=== PATIENT | male | born 1990 | race Two or more races ===

== ENCOUNTER 2025-05-20 05:08 | Emergency (ER) | payer MEDICAID, SELFPAY ==
[2025-05-20 05:09] VITALS: BP 146/97; PULSE 90; TEMP 37.1; O2SAT 97
[2025-05-20 05:11] VITALS: BMI 31.0
[2025-05-20] MEDS: DEXAMETHASONE SOD PHOS INJ 10 MG/ML VIAL IM (06:38)
[2025-05-20 07:10] LABS: Basophils # (Auto) 0.0 Thou/mm3 (0.0-0.2); Basophils % (Auto) 1 % (0-2.5); Eosinophils # (Auto) 0.1 Thou/mm3 (0.0-0.5); Eosinophils % (Auto) 2 % (0-10); Hematocrit 43.2 % (41.0-53.0); Hemoglobin 14.5 g/dL (13.5-16.0); Immature Granulocytes Auto 0.01 Thou/mm3 (0.00-0.00); Lymphocytes # (Auto) 2.2 Thou/mm3 (1.0-4.8); Lymphocytes % (Auto) 29 % (10-50); Mean Corpuscular HGB Conc 33.6 g/dl (31.0-37.0); Mean Corpuscular Hemoglobin 29.5 pg (25.0-35.0); Mean Corpuscular Volume 88 fL (80-100); Monocytes # (Auto) 0.7 Thou/mm3 (0.0-0.8); Monocytes % (Auto) 10 % (0-12); Neutrophils # (Auto) 4.5 Thou/mm3 (1.8-7.7); Neutrophils % (Auto) 59 % (37-80); Nucleated Red Blood Cell # 0.00 Thou/mm3 (0.00-0.00); Nucleated Red Blood Cell % 0 /100 WBC (0); Platelet Count 241 Thou/mm3 (140-440); RDW Standard Deviation 39.8 fL (35.1-43.9); Red Blood Count 4.91 Miln/mm3 (4.50-5.90); White Blood Count 7.6 Thou/mm3 (3.8-10.6)
--- NOTE | 2025-05-20 07:15 | PD.EDRME ---
Rapid Medical Screening Exam RME Arrival date/time: 05/20/25 05:08 34-year-old male presents to the emergency department today for complaint of difficulty swallowing Chief Complaint: Shortness of Breath/Dyspnea Vital signs: Vital Signs Temperature 98.7 F 05/20/25 05:09 Pulse Rate 90 05/20/25 05:09 Blood Pressure 146/97 H 05/20/25 05:09 Pulse Oximetry (%) 97 05/20/25 05:09 Oxygen Delivery Method Room Air 05/20/25 05:09
[2025-05-20 07:18] VITALS: BP 137/100; PULSE 76; RESP 16; O2SAT 96
[2025-05-20 07:25] LABS: INR 1.0 (0.9-1.3); Partial Thromboplastin Time 23.8 Seconds (22.0-36.0); Prothrombin Time 10.9 Seconds (9.0-12.2)
[2025-05-20] MEDS: SODIUM CHLORIDE 0.9% 1000 ML 1,000 ML 999 ML IV (07:27)
[2025-05-20] MEDS: GLUCAGON INJ 1 MG VIAL IVP (07:28)
[2025-05-20 07:29] LABS: Alanine Aminotransferase 73 U/L (10-49); Albumin, Serum 5.1 gm/dL (3.5-5.0); Albumin/Globulin Ratio 2.0 (1.2-2.2); Alkaline Phosphatase 84 U/L (46-116); Anion Gap 12 (7-16); Aspartate Amino Transferase 40 U/L (0-34); BUN/Creatinine Ratio 12 Ratio (12-20); Bilirubin,Total 0.6 mg/dL (0.3-1.2); Blood Urea Nitrogen 11 mg/dL (9-23); Calcium 10.2 mg/dL (8.3-10.6); Calcium (Corrected) 10.2 mg/dL (8.5-10.1); Carbon Dioxide 28.1 mMol/L (20.0-31.0); Chloride 100 mMol/L (98-107); Creatinine (Component) 0.9 mg/dL (0.6-1.3); Estimated Creatinine Clearance 134.2 mL/min (>60); Globulin 2.6 gm/dL (2.3-3.5); Glucose 94 mg/dL (74-106); Osmolality,Calculated 278 (275-295); Potassium 4.0 mMol/L (3.4-5.1); Sodium 140 mMol/L (136-145); Total Protein 7.7 gm/dL (5.7-8.2); eGFR > 60 See Note
[2025-05-20] MEDS: ONDANSETRON INJ 2 MG/ML INJ 2 ML 4 MG IVP (07:30)
[2025-05-20] MEDS: FAMOTIDINE INJ 10 MG/ML VIAL 2 ML 20 MG IVP (07:30)
--- NOTE | 2025-05-20 10:24 | PD.EDSOB ---
ED SOB =RME/HPI General Chief Complaint: Shortness of Breath/Dyspnea Stated Complaint: SHORTNESS OF BREATH Arrival date/time: 05/20/25 05:08 Limitations: no limitations RME / HPI RME / HPI Narrative: 05/20/25 05:08 34-year-old male presents to the emergency department today for complaint of difficulty swallowing DR. BEAL MAIN ED EVALUATION: 34 year old male with no stated medical history presents to the ED for evaluation of foreign body sensation just below the neck beginning early this morning. Accompanied by feeling slightly short of breath and difficulty swallowing. States yesterday for dinner he had soft shell chicken tacos. Patient states he was able to swallow water this morning but unable to eat anything due to an uncomfortable sensation. Denies any drooling. No other associated symptoms or complaints reported. Denies vomiting. Related Data Previous Rx's ?Medication ?Instructions ?Recorded Hydrocodone/Acetaminophen * (NORCO 1 tab PO Q4H PRN PAIN #10 tabs 08/06/16 5/325 *) Diphenhydramine Hcl CRM * 0 TOP Q4H PRN ITCHING ##20 07/04/17 (BENADRYL CRM *) hydrocortisone 2.5 % topical cream 1 appln TOP BID rash ##20 07/04/17 Allergies Allergy/AdvReac Type Severity Reaction Status Date / Time bee venom protein (honey bee) Allergy Verified 05/20/25 05:09 Review of Systems Review of Systems Systems Reviewed: All systems reviewed, normal except as documented Past Medical History Past Medical History CARDIAC: Negative Congestive Heart Failure RESPIRATORY: Negative Chronic Obstructive Pulmonary Disease (COPD) GENITOURINARY: Negative Renal Disease ENDOCRINE: Negative Diabetes Mellitus Type 1 or Diabetes Mellitus Type 2 Social History SMOKING STATUS: Never smoker ED Exam General Limitations: Present no limitations General appearance: Present alert and in no apparent distress Head Head exam: Present atraumatic, normocephalic and normal inspection Eye Eye exam: Present normal appearance, PERRL and EOMI ENT ENT exam: Present normal exam, normal oropharynx (No foreign body visualized ), mucous membranes moist and other (No drooling ) Neck Neck exam: Present normal inspection, full ROM and trachea midline Chest Chest inspection: Present normal inspection and symmetric chest wall rise Respiratory Respiratory exam: Present normal lung sounds bilaterally Cardiovascular Cardiovascular exam: Present regular rate, normal rhythm and normal heart sounds Abdominal Exam Abdominal exam: Present soft and normal bowel sounds Extremities Exam Extremities exam: Present normal inspection and full ROM Back Exam Back exam: Present normal inspection and full ROM Neurological Exam Neurological exam: Present alert, oriented X3 and CN II-XII intact Psychiatric Psychiatric exam: Present normal affect and normal mood Skin Skin exam: Present warm, dry, intact and normal color Course Quality Measures none Orders Category Date Time Status CBC Stat Lab 05/20/25 06:58 Completed CMP [Comprehensive Metabolic Panel] Stat Lab 05/20/25 06:58 Completed PT [Prothrombin Time with INR] Stat Lab 05/20/25 06:58 Completed PTT [Partial Thromboplastin Time] Stat Lab 05/20/25 06:58 Completed Dexamethasone Inj [Decadron Inj] Med 05/20/25 06:22 Discontinued 10 mg IM X1 ONE Famotidine Inj [Pepcid Inj] Med 05/20/25 07:10 Discontinued 20 mg IVP X1 ONE Glucagon Inj Med 05/20/25 07:10 Discontinued 1 mg IVP X1 ONE Ondansetron Inj [Zofran Inj] Med 05/20/25 07:10 Discontinued 4 mg IVP X1 ONE Sodium Chloride 0.9% 1000 ml [Ns] 1,000 ml Med 05/20/25 07:11 Discontinued IV 999 mls/hr Vital Signs Vital signs: Vital Signs Temperature 98.7 F 05/20/25 05:09 Pulse Rate 90 05/20/25 05:09 Blood Pressure 146/97 H 05/20/25 05:09 Pulse Oximetry (%) 97 05/20/25 05:09 Oxygen Delivery Method Room Air 05/20/25 05:09 Pulse ox is 97% on room air which is adequate. Shortness of Breath / Dyspnea MDM Narrative MDM Narrative:: Katheryn Lemons am scribing for and in the presence of Dr. Beal. Patient remains clinically stable throughout the emergency department visit not in respiratory distress, no drooling, able to tolerate po. We reviewed all the results, analysis, and treatment plans. Patient is amenable to discharge. Strict return precautions were outlined. Patient data External records reviewed:: None (No previous ED visits for review ) Clinical information provided by:: patient Social determinants that could affect healthcare access:: none Patient has the following chronic illnesses:: None reported How is presenting disease/condition affected by chronic disease/condition?: no chronic disease Evaluation data The following diagnostics were reviewed and interpreted by me:: lab results and radiology exam(s) Lab and/or radiology exams considered but not ordered:: None Interpretation Summary: CBC and CMP are within normal limits Medications / Prescriptions Medications or Prescriptions considered but not ordered:: None Medication administrations:: Medication Administration History Discontinued Medications Dexamethasone Sodium Phosphate (Dexamethasone Sod Phos Inj 10 Mg/Ml Vial) 10 mg IM X1 ONE Stop: 05/20/25 06:23 Last Admin: 05/20/25 06:38 Dose: 10 mg Documented By: CVL Famotidine (Famotidine Inj 10 Mg/Ml Vial 2 Ml) 20 mg IVP X1 ONE Stop: 05/20/25 07:11 Last Admin: 05/20/25 07:30 Dose: 20 mg Documented By: EF Glucagon (Glucagon Inj 1 Mg Vial) 1 mg IVP X1 ONE Stop: 05/20/25 07:11 Last Admin: 05/20/25 07:28 Dose: 1 mg Documented By: EF Sodium Chloride (Ns) 1,000 mls @ 999 mls/hr IV .Q1H1M ONE Stop: 05/20/25 08:11 Last Infusion: 05/20/25 08:28 Dose: Infused Documented By: Admin: 05/20/25 07:27 Dose: 999 mls/hr Documented By: EF Ondansetron HCl (Ondansetron Inj 2 Mg/Ml Inj 2 Ml) 4 mg IVP X1 ONE; Protocol Stop: 05/20/25 07:11 Last Admin: 05/20/25 07:30 Dose: 4 mg Documented By: EF See above Consultations Consultation(s) initiated? (list below): No Diagnosis Shortness of Breath Differential Diagnosis: acute exacerbation of chronic obstructive airways disease, community acquired pneumonia and other (foreign body) Most likely diagnosis given after review of the tests above:: Foreign body sensation, resolving Admission Indicated Admission indicated?: not indicated Admission Request Was there a request for admission?: No Disposition Plan Disposition Plan: Discharge Discharge Attestation Discharge Attestation: The patient and all family members were given an opportunity to ask questions and understood the discharge instructions. Discharge instructions specifically effects, indications for sooner follow up or return to the emergency department, and the expected course of current diagnosis. Patient condition: Stable Discharge Plan Plan Patient Disposition: HOME (Self Care) Prescriptions/Referrals Prescriptions/Med Rec: No Action Hydrocodone/Acetaminophen * (NORCO 5/325 *) 1 TAB tablet 1 tab PO Q4H PRN (Reason: PAIN) Qty: 10 0RF Rx Instructions: FOR PAIN hydrocortisone 30 GM cream 1 appln TOP BID Qty: 20 1RF Diphenhydramine Hcl CRM * (BENADRYL CRM *) 30 GM cream 0 TOP Q4H PRN (Reason: ITCHING) Qty: 20 1RF Rx Instructions: 1 APPLICATION Referrals: Eber Mulligan MD [Primary Care Provider, Family Practice] - In 1 week Problem List Clinical Impression: Foreign body sensation, throat Patient/Caregiver Discharge Instructions Additional Instructions: Follow-up with your primary care doctor in 3 to 5 days for recheck. You can return to the emergency department sooner if symptoms worsen or if you notice any new, concerning issues. Print Language: [place] Stand Alone Forms: Radha Award Info., Patient Portal Info Letter
[2025-05-20 12:06] VITALS: BP 117/75; PULSE 68; RESP 18; O2SAT 95
== END 2025-05-20 12:08 | disposition home or self-care (01) ==
PROVIDERS: Nurse Practitioner Primary Care; Emergency Provider Family Medicine; PCP Family Medicine
DX: R09.A2 Foreign body sensation, throat (principal)
CPT/HCPCS: 36415; 80053; 85025; 85610; 85730; 96361; 96372; 96374; 96375; 99283; J1100; J1611; J2405; J3490; J7030